=== PATIENT | male | born 1960 | race Caucasian/White ===

== ENCOUNTER 2018-02-21 18:26 | Observation (INO) | payer MEDICARE ==
[2018-02-21] MEDS ORDERED: MORPHINE SULFATE/PF 10MG/10ML VL IV STA (18:44)
[2018-02-21] MEDS ORDERED: RX INFO: IV CONTRAST WAS GIVEN 1 EACH MISC MISCELLANE PRN ×3 (18:44→21:54)
[2018-02-21] MEDS ORDERED: SODIUM CHLORIDE 0.9% 1,000 ML IV STA ×2 (18:44)
[2018-02-21] MEDS ORDERED: ONDANSETRON 4 MG/2 ML VIAL IVP STA (18:44)
[2018-02-21] MEDS ORDERED: LABETALOL 5 MG/ML VIAL MDV IVP STA (18:45)
[2018-02-21] MEDS ORDERED: ASPIRIN 81 MG PO STA (18:46)
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
[2018-02-21 19:28] LABS: Basophils # (A) 0.1 k/uL (0-0.2); Basophils % (A) 0 %; Eosinophils # (A) 0.3 k/uL (0-0.7); Eosinophils % (A) 2 %; HCT 44.1 % (39.0-53.0); HGB 14.5 gm/dL (13.0-17.5); Lymphocytes # (A) 1.9 k/uL (1.0-4.8); Lymphocytes % (A) 13 %; MCH 27.4 pg (25.0-35.0); MCHC 32.8 g/dL (31.0-37.0); MCV 83.6 fL (80.0-100.0); Mean Platelet Volume 7.8; Monocytes # (A) 0.5 k/uL (0-1.0); Monocytes % (A) 4 %; Neutrophils # (A) 12.2 k/uL (1.3-7.7); Neutrophils % (A) 81 %; Platelet Count 214 k/uL (150-450); RBC 5.28 m/uL (4.30-5.90); RDW 14.3 % (11.5-15.5)
[2018-02-21 19:37] LABS: D-Dimer 1.9 mg/L FEU (<0.60)
[2018-02-21 19:40] LABS: Amylase 57 U/L (30-110); Anion Gap 13 mmol/L; Calcium 8.9 mg/dL (8.4-10.2); Carbon Dioxide 22 mmol/L (22-30); Chloride 107 mmol/L (98-107); Glucose 125 mg/dL (74-99); Lipase 319 U/L (23-300); Sodium 142 mmol/L (137-145)
[2018-02-21 19:41] LABS: Partial Thromboplastin Time 24.2 sec (22.0-30.0); Prothrombin Time 9.9 sec (9.0-12.0)
[2018-02-21 20:01] LABS: ALT 19 U/L (21-72); AST 49 U/L (17-59); Albumin 3.7 g/dL (3.5-5.0); Alkaline Phosphatase 88 U/L (38-126); Blood Urea Nitrogen 12 mg/dL (9-20); Potassium 5.8 mmol/L (3.5-5.1); Total Protein 7.9 g/dL (6.3-8.2)
[2018-02-21 20:02] LABS: Total Bilirubin 0.8 mg/dL (0.2-1.3)
[2018-02-21 20:18] LABS: Creatine Kinase MB 0.7 ng/mL (0.0-2.4)
[2018-02-21 20:25] LABS: Troponin I 0.014 ng/mL (0.000-0.034)
--- NOTE | 2018-02-21 20:40 | CT ---
EXAMINATION TYPE: CT abdomen pelvis w con DATE OF EXAM: 02/21/2018 COMPARISON: NONE HISTORY: Stomach pains CT DLP: 4471.6 mGycm Automated exposure control for dose reduction was used. TECHNIQUE: Helical acquisition of images was performed from the lung bases through the pelvis. CONTRAST: Performed without Oral Contrast and with IV Contrast, patient injected with 100 mL of Omnipaque 300. FINDINGS: LUNG BASES: No significant abnormality is appreciated. GASTRIC LAP BAND / CATHETER: Unremarkable. LIVER/GB: No acute process. However, the caudate lobe is prominent and the liver margin is scalloped. PANCREAS: No significant abnormality is seen. SPLEEN: No significant abnormality is seen. ADRENALS: No significant abnormality is seen. KIDNEYS: No significant abnormality is seen. FREE AIR: No free air is visualized. RETROPERITONEAL ADENOPATHY: None visualized REPRODUCTIVE ORGANS: No significant abnormality is seen URINARY BLADDER: No significant abnormality is seen. PELVIC ADENOPATHY: None visualized. OSSEOUS STRUCTURES: No significant abnormality is seen. BOWEL: No significant abnormality is seen. OTHER: The opacification of the arterial structures is mild in degree. There is long-standing occlusi on of the left iliac system with prominent disease of the right iliac system, the femoral-femoral byp ass graft does not appear patent, but is not well-seen. Dedicated CTA with runoff can be obtained if necessary. IMPRESSION: NO ACUTE ABDOMINAL PELVIC PROCESS.
--- NOTE | 2018-02-21 20:52 | XR ---
EXAMINATION: XR chest 2V DATE AND TIME: 02/21/2018 8:34 PM ORDERING PROVIDER: Shirley Diaz CLINICAL INDICATION: abdominal pain TECHNIQUE: PA and lateral COMPARISON: None. DESCRIPTION: The lungs are clear. The pleural spaces are negative. The cardiac silhouette is not enlarged. The mediastinal and pleural silhouettes are unremarkable. The skeletal structures are intact without focal findings. The overlying soft tissues are prominent. IMPRESSION: NO ACUTE PROCESS.
[2018-02-21] MEDS ORDERED: ENOXAPARIN 150 MG/ML SYRINGE SQ STA (21:12)
[2018-02-21] MEDS ORDERED: SODIUM CHLORIDE 0.9% 1,000 ML IV ONE (21:41)
[2018-02-21] MEDS ORDERED: ONDANSETRON 4 MG/2 ML VIAL IVP PRN (21:51)
[2018-02-21] MEDS ORDERED: NALOXONE 0.4 MG/ML 1 ML VIAL IV PRN (21:51)
[2018-02-21] MEDS ORDERED: ACETAMINOPHEN TAB 325 MG TAB PO PRN (21:51)
[2018-02-21] MEDS ORDERED: IBUPROFEN 400 MG TAB PO PRN (21:51)
[2018-02-21] MEDS ORDERED: Acetaminophen-Codeine 300-30mg TAB PO PRN (21:51)
[2018-02-21] MEDS ORDERED: DOCUSATE 100 MG CAP PO PRN (21:51)
[2018-02-21] MEDS ORDERED: IPRATROPIUM-ALBUTEROL 3 ML NEB INHALATION SCH (22:00)
[2018-02-21 23:27] VITALS: BMI 46.3
[2018-02-21] MEDS: SODIUM CHLORIDE 0.9% 1,000 ML IV SCH (23:30)
[2018-02-21] MEDS ORDERED: IPRATROPIUM-ALBUTEROL 3 ML NEB INHALATION PRN (23:37)
[2018-02-21] MEDS: MORPHINE SULFATE/PF 10MG/10ML VL IV PRN (23:40)
[2018-02-21 23:44] VITALS: RESP 22
[2018-02-22 02:00] LABS: Creatine Kinase 63 U/L (55-170)
[2018-02-22 02:12] LABS: Troponin I <0.012 ng/mL (0.000-0.034)
[2018-02-22] MEDS: MORPHINE SULFATE/PF 10MG/10ML VL IV PRN (04:37)
[2018-02-22 04:39] LABS: Appearance,Urine Clear (Clear); Bilirubin,Urine Negative (Negative); Blood,Urine Negative (Negative); Color,Urine Yellow; Glucose,Urine (UA) Negative (Negative); Ketones,Urine Negative (Negative); Leukocyte Esterase,Urine Negative (Negative); Nitrite,Urine Negative (Negative); PH, Urine 6.5 (5.0-8.0); Protein,Urine Trace (Negative); Urobilinogen,Urine <2.0 mg/dL (<2.0)
[2018-02-22 05:01] LABS: Specific Gravity,Urine 1.047 (1.001-1.035)
[2018-02-22] MEDS: IPRATROPIUM-ALBUTEROL 3 ML NEB INHALATION SCH ×3 (07:52→16:38)
[2018-02-22] MEDS: SODIUM CHLORIDE 0.9% 1,000 ML IV SCH ×2 (07:56→14:53)
[2018-02-22 08:10] LABS: Basophils % (A) 0 %; Eosinophils # (A) 0.2 k/uL (0-0.7); Eosinophils % (A) 2 %; HCT 42.2 % (39.0-53.0); HGB 13.3 gm/dL (13.0-17.5); Lymphocytes # (A) 2.2 k/uL (1.0-4.8); Lymphocytes % (A) 21 %; MCHC 31.6 g/dL (31.0-37.0); MCV 85.4 fL (80.0-100.0); Mean Platelet Volume 7.7; Monocytes # (A) 0.4 k/uL (0-1.0); Monocytes % (A) 4 %; Neutrophils # (A) 7.9 k/uL (1.3-7.7); Neutrophils % (A) 73 %; Platelet Count 195 k/uL (150-450); RBC 4.94 m/uL (4.30-5.90); RDW 14.4 % (11.5-15.5); WBC 10.8 k/uL (3.8-10.6)
[2018-02-22 08:21] LABS: ALT 26 U/L (21-72); AST 35 U/L (17-59); Alkaline Phosphatase 84 U/L (38-126); Anion Gap 10 mmol/L; Blood Urea Nitrogen 11 mg/dL (9-20); Calcium 8.1 mg/dL (8.4-10.2); Carbon Dioxide 26 mmol/L (22-30); Chloride 107 mmol/L (98-107); Glucose 111 mg/dL (74-99); Potassium 3.9 mmol/L (3.5-5.1); Sodium 143 mmol/L (137-145); Total Bilirubin 0.5 mg/dL (0.2-1.3); Total Protein 6.2 g/dL (6.3-8.2)
[2018-02-22 08:41] LABS: Creatine Kinase MB 1.5 ng/mL (0.0-2.4); Troponin I 0.014 ng/mL (0.000-0.034)
[2018-02-22] MEDS ORDERED: PANTOPRAZOLE 40 MG/10 ML VIAL IV SCH (09:00)
[2018-02-22 14:39] VITALS: BP 110/66; PULSE 81; TEMP 98
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
--- NOTE | 2018-02-22 16:03 | NM ---
EXAMINATION TYPE: NM pul vent and perfuse DATE OF EXAM: 02/22/2018 COMPARISON: NONE HISTORY: Left flank pain, elevated d-dimer TECHNIQUE: Utilizing inhalation of 70.0 mCi Tc 99m DTPA aerosol and intravenous injection of 5.06 mC i of Tc 99m MAA, ventilation and perfusion images are acquired post injection in multiple projections . FINDINGS: Near normal radiotracer distribution is noted in the lungs, small subsegmental focus of decreased upt quinten may be present along the lateral margin of the posterior right chest on ventilation and perfusion imaging, better uptake on perfusion than on ventilation. There is no evidence of mismatched defects. IMPRESSION: Low probability for pulmonary embolus.
[2018-02-22] MEDS ORDERED: amLODIPine 5 MG TAB PO SCH (21:00)
[2018-02-23] MEDS ORDERED: PANTOPRAZOLE 40 MG TABLET PO SCH (07:30)
== END 2018-02-22 17:11 | disposition home or self-care (01) ==
LOC: EC 18:26 → 5MS5E 21:30
PROVIDERS: ADMIT Internal Medicine; ATTEND Internal Medicine
DX: R10.32 Left lower quadrant pain (principal); R79.89 Other specified abnormal findings of blood chemistry; E86.0 Dehydration; I16.0 Hypertensive urgency; I10 Essential (primary) hypertension; K85.90 Acute pancreatitis without necrosis or infection, unspecified; E66.9 Obesity, unspecified; Z68.42 Body mass index [BMI] 45.0-49.9, adult; Z89.612 Acquired absence of left leg above knee; Z79.899 Other long term (current) drug therapy; Z91.048 Other nonmedicinal substance allergy status; Z98.84 Bariatric surgery status; Z95.828 Presence of other vascular implants and grafts; Z90.49 Acquired absence of other specified parts of digestive tract; Z99.3 Dependence on wheelchair; Z87.891 Personal history of nicotine dependence
CPT/HCPCS: 96376 ×2; 96375 ×4; 96361 ×5; 96372 ×2; 96374 ×2; 99285 ×2; 36415; 93005; 97162; 85379; 83880; 80053 ×2; 82150; 82550 ×2; 82553 ×2; 83605; 83690; 84132; 84484 ×2; 85025 ×2; 85610; 85730; 81003; 87040; 71046; 74177; 78582; G0378 ×2; A9540; A9567; J2405; J1650; C9113; Q9967; J2270 ×2

== ENCOUNTER → 2018-03-15 | Outpatient (CLI) | payer MEDICARE ==
[2018-03-15 14:36] VITALS: BP 173/90; PULSE 74; RESP 15; TEMP 97.9; BMI 46.3
[2018-03-15 15:50] LABS: HCT 47.3 % (39.0-53.0); HGB 15.3 gm/dL (13.0-17.5); MCH 27.3 pg (25.0-35.0); MCHC 32.3 g/dL (31.0-37.0); MCV 84.6 fL (80.0-100.0); Mean Platelet Volume 8.1; Platelet Count 202 k/uL (150-450); RBC 5.59 m/uL (4.30-5.90); RDW 14.5 % (11.5-15.5); WBC 15.5 k/uL (3.8-10.6)
[2018-03-15 16:02] LABS: ALT 24 U/L (21-72); AST 26 U/L (17-59); Albumin 3.8 g/dL (3.5-5.0); Alkaline Phosphatase 93 U/L (38-126); Anion Gap 13 mmol/L; Blood Urea Nitrogen 11 mg/dL (9-20); Calcium 9.6 mg/dL (8.4-10.2); Carbon Dioxide 29 mmol/L (22-30); Chloride 104 mmol/L (98-107); Glucose 94 mg/dL (74-99); Potassium 4.7 mmol/L (3.5-5.1); Sodium 146 mmol/L (137-145); Total Bilirubin 0.4 mg/dL (0.2-1.3); Total Protein 7.7 g/dL (6.3-8.2)
--- NOTE | 2018-03-15 17:01 | P.HPBAR ---
Bariatric H&P - History & Physicial H&P Date: 03/15/18 History & Physicial: Visit/CC: sleeve consult Patient initial contact: Initial weight: 142.428 kg Initial weight in pounds: 314.00 Height: 5 ft 9 in Initial BMI: 46.3 Last weight: Current weight: 142.428 kg Current weight in pounds: 314.00 Current BMI: 46.3 [place] body weight (based on NIH guidelines): 72.575 kg Excess body weight loss: 0.0% The patient is a 57 year-old M who presents for Bariatric Assessment. Patient presents today for lab band follow. The patient is requesting conversion sleeve gastrectomy. Patient has had many years of GERD related to his LAP- BAND. He is unable to tolerate a significant fill of his band due to significant dysphagia and GERD. He had a recent EGD which shows evidence of esophagitis and a possibly enlarged gastric pouch. Past Medical History Past Medical History: GERD/Reflux, Hypertension History of Any Multi-Drug Resistant Organisms: None Reported Past Surgical History: Appendectomy, Bariatric Surgery, Cholecystectomy, Orthopedic Surgery, Tonsillectomy Additional Past Surgical History / Comment(s): left AKA, lap band- 2003,Right- Left fem-pop bypass surgery, Left above knee amputation, Past Anesthesia/Blood Transfusion Reactions: No Reported Reaction Additional Past Anesthesia/Blood Transfusion Reaction / Comm: No transfusion to date Past Psychological History: No Psychological Hx Reported Smoking Status: Former smoker Past Alcohol Use History: None Reported Additional Past Alcohol Use History / Comment(s): quit smoking August 2017 Past Drug Use History: None Reported Surgical - Exam Vital Signs Temp Pulse Resp BP 97.9 F 74 15 173/90 03/15/18 14:28 03/15/18 14:28 03/15/18 14:28 03/15/18 14:28 - General well developed, no distress - Eyes PERRL - ENT normal pinna - Neck no masses - Respiratory normal expansion - Cardiovascular Rhythm: regular - Abdomen Abdomen: soft, non tender Results - Labs 03/15/18 15:14 03/15/18 15:14 Abnormal Lab Results - Last 24 Hours (Table) 03/15/18 03/15/18 Range/Units 15:14 15:14 WBC 15.5 H (3.8-10.6) k/uL Sodium 146 H (137-145) mmol/L Diabetes panel 03/15/18 Range/Units 15:14 Sodium 146 H (137-145) mmol/L Potassium 4.7 (3.5-5.1) mmol/L Chloride 104 (98-107) mmol/L Carbon Dioxide 29 (22-30) mmol/L BUN 11 (9-20) mg/dL Creatinine 0.80 (0.66-1.25) mg/dL Glucose 94 (74-99) mg/dL Calcium 9.6 (8.4-10.2) mg/dL AST 26 (17-59) U/L ALT 24 (21-72) U/L Alkaline Phosphatase 93 (38-126) U/L Total Protein 7.7 (6.3-8.2) g/dL Albumin 3.8 (3.5-5.0) g/dL Thyroid panel 03/15/18 Range/Units 15:14 TSH 1.180 (0.465-4.680) mIU/L Calcium panel 03/15/18 Range/Units 15:14 Calcium 9.6 (8.4-10.2) mg/dL Albumin 3.8 (3.5-5.0) g/dL Pituitary panel 03/15/18 Range/Units 15:14 Sodium 146 H (137-145) mmol/L Potassium 4.7 (3.5-5.1) mmol/L Chloride 104 (98-107) mmol/L Carbon Dioxide 29 (22-30) mmol/L BUN 11 (9-20) mg/dL Creatinine 0.80 (0.66-1.25) mg/dL Glucose 94 (74-99) mg/dL Calcium 9.6 (8.4-10.2) mg/dL TSH 1.180 (0.465-4.680) mIU/L Adrenal panel 03/15/18 Range/Units 15:14 Sodium 146 H (137-145) mmol/L Potassium 4.7 (3.5-5.1) mmol/L Chloride 104 (98-107) mmol/L Carbon Dioxide 29 (22-30) mmol/L BUN 11 (9-20) mg/dL Creatinine 0.80 (0.66-1.25) mg/dL Glucose 94 (74-99) mg/dL Calcium 9.6 (8.4-10.2) mg/dL Total Bilirubin 0.4 (0.2-1.3) mg/dL AST 26 (17-59) U/L ALT 24 (21-72) U/L Alkaline Phosphatase 93 (38-126) U/L Total Protein 7.7 (6.3-8.2) g/dL Albumin 3.8 (3.5-5.0) g/dL Bariatric Assessment & Plan Plan: Morbid obesity BMI 47. Patient has long-standing problems with dysphagia and GERD related to his band. We'll attempt authorizing for removal of LAP-BAND and conversion sleeve gastrectomy. Bariatric Checklist Checklist: Plan: Checklist: EGD: 1. Hiatal hernia: 2. H. Pylori: HgbA1c: Vitamin D: Smoking: Former smoker Primary care physician referral: Dr. Kadeem Khanna ([place]) Psychiatry clearance: Cardiology clearance: Sleep study: Diet journal: VTE risk score: VTE risk level: Rehab needs at discharge:
[2018-03-16 02:00] LABS: Iron Saturation 13.2 (15.00-50.00)
[2018-03-16 03:37] LABS: Hemoglobin A1C 6.2 % (4.0-6.0)
== END | disposition home or self-care (01) ==
LOC: BARWHC3 13:56
PROVIDERS: ATTEND Surgery
DX: Z09 Encounter for follow-up examination after completed treatment for conditions other than malignant neoplasm (principal); K21.9 Gastro-esophageal reflux disease without esophagitis; R13.10 Dysphagia, unspecified; I10 Essential (primary) hypertension; D50.8 Other iron deficiency anemias; E55.9 Vitamin D deficiency, unspecified; E44.0 Moderate protein-calorie malnutrition; E89.1 Postprocedural hypoinsulinemia; Z90.49 Acquired absence of other specified parts of digestive tract; Z98.84 Bariatric surgery status; Z90.89 Acquired absence of other organs; Z98.890 Other specified postprocedural states; Z89.612 Acquired absence of left leg above knee; Z95.820 Peripheral vascular angioplasty status with implants and grafts; Z87.891 Personal history of nicotine dependence; Z68.42 Body mass index [BMI] 45.0-49.9, adult
CPT/HCPCS: 36415; 80053; 82306; 83036; 83540; 83550; 84443; 85027; 93005; 99211

== ENCOUNTER → 2018-06-28 | Outpatient (CLI) | payer MEDICARE ==
[2018-06-28 14:58] VITALS: BP 170/77; PULSE 83; RESP 16; TEMP 98.1; BMI 46.3
--- NOTE | 2018-06-28 15:11 | P.HPBAR ---
Bariatric H&P - History & Physicial H&P Date: 06/28/18 History & Physicial: Visit/CC: band to sleeve surgery aug ? Patient initial contact: Initial weight: 142.428 kg Initial weight in pounds: 314.00 Height: 5 ft 9 in Initial BMI: 46.3 Last weight: Current weight: 142.428 kg Current weight in pounds: 314.00 Current BMI: 46.3 [place] body weight (based on NIH guidelines): 72.575 kg Excess body weight loss: 0.0% The patient is a 57 year-old M who presents for Bariatric Assessment. Patient presents today for preoperative surgical consultation. He has finished mostly requirements of his preoperative sleeve. The patient will attempting to get authorized for sleeve gastrectomy. He'll be scheduled for direct last. His BMI is 47. Past Medical History Past Medical History: GERD/Reflux, Hypertension History of Any Multi-Drug Resistant Organisms: None Reported Past Surgical History: Appendectomy, Bariatric Surgery, Cholecystectomy, Orthopedic Surgery, Tonsillectomy Additional Past Surgical History / Comment(s): left AKA, lap band- 2003,Right- Left fem-pop bypass surgery, Left above knee amputation, Past Anesthesia/Blood Transfusion Reactions: No Reported Reaction Additional Past Anesthesia/Blood Transfusion Reaction / Comm: No transfusion to date Past Psychological History: No Psychological Hx Reported Smoking Status: Former smoker Past Alcohol Use History: None Reported Additional Past Alcohol Use History / Comment(s): quit smoking August 2017 Past Drug Use History: None Reported Surgical - Exam Vital Signs Temp Pulse Resp BP 98.1 F 83 16 170/77 06/28/18 14:55 06/28/18 14:55 06/28/18 14:55 06/28/18 14:55 - General no distress - Eyes PERRL - Neck no masses - Respiratory normal expansion - Abdomen Abdomen: soft, non tender Bariatric Assessment & Plan Plan: The patient has morbid obesity BMI 47. We will attempt authorized for sleeve gastrectomy and removal of LAP-BAND. Bariatric Checklist Checklist: Plan: Checklist: EGD: 1. Hiatal hernia: 2. H. Pylori: HgbA1c: Vitamin D: Smoking: Former smoker Primary care physician referral: Dr. Kadeem Khanna ([place]) Psychiatry clearance: Cardiology clearance: Sleep study: Diet journal: VTE risk score: VTE risk level: Rehab needs at discharge:
== END | disposition home or self-care (01) ==
LOC: BARWHC3 14:17
PROVIDERS: ATTEND Surgery
DX: Z01.818 Encounter for other preprocedural examination (principal); E66.01 Morbid (severe) obesity due to excess calories; Z68.42 Body mass index [BMI] 45.0-49.9, adult; Z98.84 Bariatric surgery status; Z90.49 Acquired absence of other specified parts of digestive tract; Z90.89 Acquired absence of other organs; Z98.890 Other specified postprocedural states; Z89.612 Acquired absence of left leg above knee; Z87.891 Personal history of nicotine dependence
CPT/HCPCS: 99211

== ENCOUNTER → 2018-08-30 | Outpatient (CLI) | payer MEDICARE ==
[2018-08-30 14:18] LABS: Basophils % (A) 0 %; Eosinophils # (A) 0.1 k/uL (0-0.7); Eosinophils % (A) 1 %; HCT 48.3 % (39.0-53.0); HGB 15.6 gm/dL (13.0-17.5); Lymphocytes # (A) 1.5 k/uL (1.0-4.8); Lymphocytes % (A) 11 %; MCH 28.2 pg (25.0-35.0); MCHC 32.2 g/dL (31.0-37.0); MCV 87.6 fL (80.0-100.0); Mean Platelet Volume 7.1; Monocytes # (A) 0.4 k/uL (0-1.0); Monocytes % (A) 3 %; Neutrophils # (A) 11.8 k/uL (1.3-7.7); Neutrophils % (A) 85 %; Platelet Count 198 k/uL (150-450); RBC 5.52 m/uL (4.30-5.90); RDW 13.8 % (11.5-15.5)
[2018-08-30 14:26] LABS: ALT 32 U/L (21-72); AST 31 U/L (17-59); Albumin 3.9 g/dL (3.5-5.0); Alkaline Phosphatase 80 U/L (38-126); Anion Gap 10 mmol/L; Blood Urea Nitrogen 13 mg/dL (9-20); Calcium 9.5 mg/dL (8.4-10.2); Carbon Dioxide 28 mmol/L (22-30); Chloride 105 mmol/L (98-107); Glucose 175 mg/dL (74-99); Potassium 4.5 mmol/L (3.5-5.1); Sodium 143 mmol/L (137-145); Total Bilirubin 0.7 mg/dL (0.2-1.3); Total Protein 7.7 g/dL (6.3-8.2)
== END ==
LOC: LABPAT 13:25
PROVIDERS: ATTEND Surgery
DX: Z01.812 Encounter for preprocedural laboratory examination (principal)
CPT/HCPCS: 36415; 80053; 85025

== ENCOUNTER → 2018-08-30 | Outpatient (CLI) | payer MEDICARE ==
[2018-08-30 13:39] VITALS: BP 157/78; PULSE 76; TEMP 98.2; BMI 49.8
--- NOTE | 2018-08-30 15:31 | P.HPBAR ---
Bariatric H&P - History & Physicial H&P Date: 08/30/18 History & Physicial: Visit/CC: preoperative visit Patient initial contact: Initial weight: 142.428 kg Initial weight in pounds: 314.00 Height: 5 ft 9 in Initial BMI: 46.3 Last weight: Current weight: 153.314 kg Current weight in pounds: 338.00 Current BMI: 49.8 [place] body weight (based on NIH guidelines): 72.575 kg Excess body weight loss: The patient is a 57 year-old M who presents for Bariatric Assessment. Patient presents today for bariatric presurgical consultation. He has been approved for sleeve gastrectomy. Patient is morbidly obese BMI of 50 Past Medical History Past Medical History: GERD/Reflux, Hypertension History of Any Multi-Drug Resistant Organisms: None Reported Past Surgical History: Appendectomy, Bariatric Surgery, Cholecystectomy, Orthopedic Surgery, Tonsillectomy Additional Past Surgical History / Comment(s): left AKA, lap band- 2004,Right- Left fem-pop bypass surgery, Left above knee amputation, Past Anesthesia/Blood Transfusion Reactions: No Reported Reaction Additional Past Anesthesia/Blood Transfusion Reaction / Comm: No transfusion to date Past Psychological History: No Psychological Hx Reported Smoking Status: Former smoker Past Alcohol Use History: None Reported Additional Past Alcohol Use History / Comment(s): quit smoking August 2017 Past Drug Use History: None Reported Surgical - Exam Vital Signs Temp Pulse BP 98.2 F 76 157/78 08/30/18 13:33 08/30/18 13:33 08/30/18 13:33 - General well developed, well nourished, no distress - Eyes PERRL - Abdomen Abdomen: soft, non tender Bariatric Assessment & Plan Plan: Morbid obesity with severe comorbidities. Patient has a good understanding of the sleeve gastrectomy. His of the risks of surgery including bleeding, perforation scarring. He is also a risk of recurrent GERD and dysphagia. Bariatric Checklist Checklist: Plan: Checklist: EGD: 1. Hiatal hernia: 2. H. Pylori: HgbA1c: Vitamin D: Smoking: Former smoker Primary care physician referral: Dr. Kadeem Khanna ([place]) Psychiatry clearance: Cardiology clearance: Sleep study: Diet journal: VTE risk score: VTE risk level: Rehab needs at discharge:
== END | disposition home or self-care (01) ==
LOC: BARWHC3 12:59
PROVIDERS: ATTEND Surgery
DX: Z01.818 Encounter for other preprocedural examination (principal); E66.01 Morbid (severe) obesity due to excess calories; Z68.43 Body mass index [BMI] 50.0-59.9, adult; Z98.84 Bariatric surgery status; Z90.49 Acquired absence of other specified parts of digestive tract; Z90.89 Acquired absence of other organs; Z98.890 Other specified postprocedural states; Z89.612 Acquired absence of left leg above knee; Z87.891 Personal history of nicotine dependence
CPT/HCPCS: 99211

== ENCOUNTER 2018-09-13 06:14 | Inpatient (IN) | payer MEDICARE ==
[2018-09-06 10:54] VITALS: BMI 48.9
[~2018-09-13 06:14] MED LIST: DEXAMETHASONE SOD PHOSPHATE 10 MG/ML 1 ML VIAL IV ONE; ENOXAPARIN 40 MG/0.4 ML SYRINGE SQ ONE; LACTATED RINGERS 1,000 ML IV SCH; LIDOCAINE 1% 20 ML VIAL (10MG/ML) FOR IV START INTRADERMA PRN; ONDANSETRON 4 MG/2 ML VIAL IVP ONE; SCOPOLAMINE 1.5MG/72HR PATCH TRANSDERM ONE
--- NOTE | 2018-09-13 07:54 | P.GSHP ---
History of Present Illness H&P Date: 09/13/18 Chief Complaint: Morbid obesity, dysphagia This 57-year-old male who presents today for removal of LAP-BAND and conversion sleeve gastrectomy. Patient morbidly obese. His BMI is 49. Patient has had a previous history of LAP-BAND surgery. He has dysphagia when his band is tight. He presents today for removal of his LAP-BAND secondary dysphagia. Past Medical History Past Medical History: GERD/Reflux, Hypertension, Osteoarthritis (OA) History of Any Multi-Drug Resistant Organisms: None Reported Past Surgical History: Appendectomy, Bariatric Surgery, Cholecystectomy, Orthopedic Surgery, Tonsillectomy Additional Past Surgical History / Comment(s): left below the knee, lap band- 2003,Right- Left fem-pop bypass surgery, Left above knee amputation, Past Anesthesia/Blood Transfusion Reactions: No Reported Reaction Additional Past Anesthesia/Blood Transfusion Reaction / Comment(s): No transfusion to date Smoking Status: Former smoker - Past Family History Mother Family Medical History: No Reported History Medications and Allergies Home Medications Medication Instructions Recorded Confirmed Type Hydrochlorothiazide [Hydrodiuril] 25 mg PO DAILY 02/22/18 09/13/18 History Metoprolol Succinate [Toprol Xl] 50 mg PO DAILY 08/16/18 09/13/18 History Sertraline [Zoloft] 50 mg PO DAILY 08/16/18 09/13/18 History amLODIPine [Norvasc] 10 mg PO DAILY 08/16/18 09/13/18 History oxyCODONE-APAP 7.5-325MG [Percocet 1 tab PO TID PRN 08/16/18 09/13/18 History 7.5-325 mg] Allergies Allergy/AdvReac Type Severity Reaction Status Date / Time steri strips AdvReac Rash/Hives Uncoded 09/13/18 06:47 Surgical - Exam Vital Signs Temp Pulse Resp BP Pulse Ox 97.4 F L 57 L 16 151/66 95 09/13/18 06:36 09/13/18 06:36 09/13/18 06:36 09/13/18 06:36 09/13/18 06:36 - General BMI 49 well developed, well nourished, no distress - Eyes PERRL - ENT normal pinna - Neck no masses - Respiratory normal expansion - Cardiovascular Rhythm: regular - Abdomen Abdomen: soft, non tender - Musculoskeletal Left BKA Assessment and Plan Assessment: Morbid obesity. We'll perform removal LAP-BAND and conversion to sleeve gastrectomy.
[2018-09-13] MEDS ORDERED: PROPOFOL 10 MG/ML 20 ML VIAL IV ONE (07:59)
[2018-09-13] MEDS ORDERED: MIDAZOLAM 2 MG/2 ML VIAL ONE (07:59)
[2018-09-13] MEDS ORDERED: LIDOCAINE 1% INJ 10MG/ML (20 ML MDV) ONE (07:59)
[2018-09-13] MEDS ORDERED: ROCURONIUM BROMIDE 10 MG/ML 10 ML VIAL IV ONE (07:59)
[2018-09-13] MEDS ORDERED: GLYCOPYRROLATE 0.2 MG/ML 2 ML VIAL ONE (07:59)
[2018-09-13] MEDS ORDERED: NEOSTIGMINE 1 MG/ML 10 ML VIAL ONE (07:59)
[2018-09-13] MEDS ORDERED: SUCCINYLCHOLINE CHLORIDE VIAL 200 MG/10 ML VIAL IV ONE (07:59)
[2018-09-13] MEDS ORDERED: fentaNYL (PF) 50 MCG/ML 2 ML AMP ONE (07:59)
[2018-09-13] MEDS ORDERED: LABETALOL 5 MG/ML VIAL MDV ONE (07:59)
[2018-09-13] MEDS ORDERED: BUPIVACAIN-EPI 0.25%-1:200,000 30 ML VIAL SQ ONE (08:40)
[2018-09-13] MEDS ORDERED: LACTATED RINGERS 1,000 ML IV ONE (09:47)
[2018-09-13] MEDS ORDERED: NALOXONE 0.4 MG/ML 1 ML VIAL IV PRN (10:07)
[2018-09-13] MEDS ORDERED: ONDANSETRON 4 MG/2 ML VIAL IVP PRN (10:07)
[2018-09-13] MEDS ORDERED: diphenhydrAMINE 50 MG/ML 1 ML VIAL IVP PRN (10:07)
[2018-09-13] MEDS ORDERED: SIMETHICONE 40 MG/0.6 ML DROPS 2,000 MG/30 ML BOTTLE PO PRN (10:07)
--- NOTE | 2018-09-13 10:22 | P.OP ---
Date of Procedure: 09/13/18 Preoperative Diagnosis: Dysphagia Morbid obesity BMI 49 Postoperative Diagnosis: Dysphagia Morbid obesity, BMI 49 Procedure(s) Performed: Laparoscopic lysis of adhesions Laparoscopic removal LAP-BAND Laparoscopic sleeve gastrectomy Anesthesia: MARISSA Surgeon: Nabor Preston Estimated Blood Loss (ml): 10 Pathology: other (Stomach) Condition: stable Disposition: PACU Description of Procedure: TThe patient was placed on the operating room table in the supine position. She received general anesthesia and then was placed in dorsal lithotomy position. Her abdomen was prepped and draped in sterile fashion. The skin incision sites were anesthetized 1% local Xylocaine. And then the skin was incised with an 11 blade in the left lateral position. Using a blade less trocar under direct visualization the peritoneal cavity was entered. The abdomen was insufflated and then a 5 mm laparoscope was placed into the peritoneal cavity. A 5 mm trocar was placed in the right epigastric, and right lateral position. A 15 mm trocar was placed in the supra-umbilical position and another 5 mm trocar was placed in the left lateral position. The left lateral lobe of the liver was retracted. The LAP-BAND was visualized. There were adhesions to the LAP-BAND. Approximately 15 minutes of operative time used to lyse adhesions. The LAP- BAND anterior gastric wall plication and was taken down with sharp dissection. Care was taken to identify and preserve the gastric wall. The LAP-BAND was then cut and withdrawn from around stomach. There is no injury seen to the stomach or esophagus. The stomach was visualized. The greater curvature of the stomach was then dissected using the Harmonic scissors. The dissection occurred approximately 5 cm from the pylorus to the level of the left sonia. There was no hiatal hernia seen. At this point a 40-Kinyarwanda bougie dilator was placed the oropharynx and passed into the esophagus and into the stomach by the LUG [employer]ER [employer] WIRE P[employer]ER. The sleeve gastrectomy was performed by using the powered echelon stapler with a seam guard buttress material. Sequential firings of the stapler were performed. The gastric remnant was then brought out through the 15 mm trocar site. The dilator was withdrawn. And a orogastric tube was replaced into the stomach. The stomach was insufflated with 200 mL of methylene blue normal saline. There was no evidence of extravasation. The abdomen was irrigated there is no bleeding seen. The Jozef-Joe device was used to close the 15 mm trocar with 0 Vicryl. Skin was closed with interrupted 3-0 Monocryl sutures once the trochars withdrawn. Dermabond dressing was applied. Patient was sent to recovery in stable condition.
[2018-09-13] MEDS: HYDROmorphone 0.5 MG/0.5 ML SYRINGE IVP PRN ×4 (10:34→11:20)
[2018-09-13] MEDS ORDERED: ALBUTEROL NEBULIZED 2.5 MG/3 ML INHALATION ONE (10:53)
[2018-09-13] MEDS ORDERED: MEPERIDINE 50 MG/ML SYRINGE IVP ONE ×2 (12:13→14:43)
[2018-09-13] MEDS ORDERED: HYDROmorphone 1 MG/ML 1 ML SYRINGE IVP ONE ×3 (14:51→17:21)
[2018-09-13] MEDS: ALBUTEROL NEBULIZED 2.5 MG/3 ML INHALATION SCH ×2 (17:38→20:27)
--- NOTE | 2018-09-13 18:07 | P.CONS ---
History of Present Illness - Reason for Consult Recommendations regarding antihypertensive medications - History of Present Illness 7-year-old pleasant gentleman morbidly obese left knee amputation came in for elective sleeve gastrectomy lap band removal and the additional lysis. Patient successfully underwent surgery denied any pain presently except for some soreness in the surgical site areas. Patient is presently on Unasyn. Does have history of hypertension blood pressure is bit elevated. Denied any fever chills dysuria lightheadedness cough. Does have some nausea Review of Systems REVIEW OF SYSTEMS: CONSTITUTIONAL: No fever, no malaise, no fatigue. HEENT: No recent visual problems or hearing problems. Denied any sore throat. CARDIOVASCULAR: No chest pain, orthopnea, PND, no palpitations, no syncope. PULMONARY: No shortness of breath, no cough, no hemoptysis. GASTROINTESTINAL: No diarrhea, no vomiting, no abdominal pain. Normoactive bowel sounds. NEUROLOGICAL: No headaches, no weakness, no numbness. HEMATOLOGICAL: Denies any bleeding or petechiae. GENITOURINARY: Denies any burning micturition, frequency, or urgency. MUSCULOSKELETAL/RHEUMATOLOGICAL: Denies any joint pain, swelling, or any muscle pain. ENDOCRINE: Denies any polyuria or polydipsia. The rest of the 14-point review of systems is negative. Past Medical History Past Medical History: GERD/Reflux, Hypertension, Osteoarthritis (OA) History of Any Multi-Drug Resistant Organisms: None Reported Past Surgical History: Appendectomy, Bariatric Surgery, Cholecystectomy, Orthopedic Surgery, Tonsillectomy Additional Past Surgical History / Comment(s): left below the knee, lap band- 2004,Right- Left fem-pop bypass surgery, Left above knee amputation, Past Anesthesia/Blood Transfusion Reactions: No Reported Reaction Additional Past Anesthesia/Blood Transfusion Reaction / Comm: No transfusion to date Smoking Status: Former smoker - Past Family History Mother Family Medical History: No Reported History Medications and Allergies Home Medications Medication Instructions Recorded Confirmed Type Hydrochlorothiazide [Hydrodiuril] 25 mg PO DAILY 02/22/18 09/13/18 History Metoprolol Succinate [Toprol Xl] 50 mg PO DAILY 08/16/18 09/13/18 History Sertraline [Zoloft] 50 mg PO DAILY 08/16/18 09/13/18 History amLODIPine [Norvasc] 10 mg PO DAILY 08/16/18 09/13/18 History oxyCODONE-APAP 7.5-325MG [Percocet 1 tab PO TID PRN 08/16/18 09/13/18 History 7.5-325 mg] Allergies Allergy/AdvReac Type Severity Reaction Status Date / Time steri strips AdvReac Rash/Hives Uncoded 09/13/18 06:47 Physical Exam Vitals: Vital Signs Temp Pulse Pulse Resp BP Pulse Ox 09/13/18 17:25 98.1 F 76 17 161/63 94 L 09/13/18 16:49 65 16 150/70 98 09/13/18 16:23 61 16 148/70 97 09/13/18 15:54 62 16 148/67 95 09/13/18 15:35 58 L 16 150/74 94 L 09/13/18 15:15 63 14 143/68 92 L 09/13/18 14:45 72 16 138/66 95 09/13/18 14:15 68 18 143/62 95 09/13/18 13:40 63 16 153/73 97 09/13/18 13:10 63 141/63 99 09/13/18 12:40 64 18 149/65 100 09/13/18 12:18 67 18 146/70 100 09/13/18 12:14 64 18 171/77 99 09/13/18 11:50 66 20 163/70 96 09/13/18 11:35 66 20 149/68 96 09/13/18 11:20 64 20 148/68 96 09/13/18 11:05 63 20 177/79 96 09/13/18 10:50 61 18 152/71 97 09/13/18 10:35 62 16 150/72 98 09/13/18 10:21 97.2 F L 65 16 136/84 97 09/13/18 06:36 97.4 F L 57 L 16 151/66 95 Intake and Output 09/13/18 09/13/18 09/13/18 06:59 14:59 22:59 Intake Total 1150 700 Output Total 25 Balance 1125 700 Intake: IV 1150 700 Output: Estimated Blood Loss 25 PHYSICAL EXAMINATION: GENERAL: The patient is alert and oriented x3, not in any acute distress. Morbidly obese HEENT: Pupils are round and equally reacting to light. EOMI. No scleral icterus. No conjunctival pallor. Normocephalic, atraumatic. No pharyngeal erythema. No thyromegaly. CARDIOVASCULAR: S1 and S2 present. No murmurs, rubs, or gallops. PULMONARY: Chest is clear to auscultation, no wheezing or crackles. ABDOMEN: Soft, nontender, nondistended, normoactive bowel sounds. No palpable organomegaly. MUSCULOSKELETAL: No joint swelling or deformity. EXTREMITIES: No cyanosis, clubbing, or pedal edema. The below-knee amputation NEUROLOGICAL: Gross neurological examination did not reveal any focal deficits. SKIN: No rashes. Assessment and Plan Plan: -Laparoscopic sleeve gastrectomy postoperative day 0 pain management DVT prophylaxis per primary service patient's nausea is expected. -Hypertension patient blood pressure is bit elevated patient will be resumed on his home medications not receiving any IV fluids because of that reason I'll resume his hydrochlorothiazide and amlodipine -Osteoarthritis -Left below-knee amputation -Morbid obesity for which patient underwent laparoscopic sleeve gastrectomy -Anxiety disorder
[2018-09-13] MEDS: 0.9% NACL WITH KCL 20 MEQ/L 1,000 ML IV SCH (18:10)
[2018-09-13] MEDS: AMPICILLIN-SULBACTAM 3 GM in SODIUM CHLORIDE 0.9% 100 ML IVPB SCH (18:10)
[2018-09-13] MEDS: HYDROmorphone 1 MG/ML 1 ML SYRINGE IVP PRN ×2 (18:14→21:42)
[2018-09-13] MEDS ORDERED: amLODIPine 10 MG TAB PO SCH (21:00)
[2018-09-13] MEDS ORDERED: METOPROLOL SUCCINATE (ER) 50 MG TAB.ER.24H PO SCH (21:00)
[2018-09-13] MEDS ORDERED: SERTRALINE 50 MG TAB PO SCH (21:00)
[2018-09-13] MEDS: HYOSCYAMINE ORAL DROPS 1.875 MG/15 ML BOTTLE PO PRN (21:43)
[2018-09-14 00:12] VITALS: RESP 16; TEMP 97.8
[2018-09-14] MEDS: HYDROmorphone 1 MG/ML 1 ML SYRINGE IVP PRN ×4 (01:03→11:13)
[2018-09-14] MEDS: AMPICILLIN-SULBACTAM 3 GM in SODIUM CHLORIDE 0.9% 100 ML IVPB SCH (01:04)
[2018-09-14] MEDS: 0.9% NACL WITH KCL 20 MEQ/L 1,000 ML IV SCH ×2 (01:08→10:25)
[2018-09-14] MEDS: HYOSCYAMINE ORAL DROPS 1.875 MG/15 ML BOTTLE PO PRN (04:24)
[2018-09-14] MEDS: ALBUTEROL NEBULIZED 2.5 MG/3 ML INHALATION SCH ×2 (07:06→11:50)
[2018-09-14 07:49] VITALS: BP 153/63; PULSE 65
[2018-09-14 07:50] LABS: Basophils # (A) 0.1 k/uL (0-0.2); Basophils % (A) 0 %; Eosinophils % (A) 0 %; HCT 45.3 % (39.0-53.0); HGB 14.7 gm/dL (13.0-17.5); Lymphocytes % (A) 8 %; MCH 28.1 pg (25.0-35.0); MCHC 32.5 g/dL (31.0-37.0); MCV 86.5 fL (80.0-100.0); Mean Platelet Volume 7.6; Monocytes % (A) 4 %; Neutrophils % (A) 87 %; Platelet Count 237 k/uL (150-450); RBC 5.24 m/uL (4.30-5.90); RDW 14.2 % (11.5-15.5); WBC 25.3 k/uL (3.8-10.6)
[2018-09-14] MEDS ORDERED: 1: MVI, ADULT NO.4 WITH VIT K 10 ML, THIAMINE 100 MG, FOLIC ACID 1 MG, POTASSIUM CHLORID IV SCH ×6 (08:00)
[2018-09-14] MEDS ORDERED: 0.9% NACL WITH KCL 20 MEQ/L 1,000 ML IV SCH (08:00)
[2018-09-14 08:14] LABS: Anion Gap 11 mmol/L; Blood Urea Nitrogen 15 mg/dL (9-20); Calcium 9.1 mg/dL (8.4-10.2); Carbon Dioxide 23 mmol/L (22-30); Chloride 108 mmol/L (98-107); Magnesium 2.1 mg/dL (1.6-2.3); Phosphorus 2.9 mg/dL (2.5-4.5); Potassium 4.6 mmol/L (3.5-5.1); Sodium 142 mmol/L (137-145)
[2018-09-14] MEDS ORDERED: ENOXAPARIN 40 MG/0.4 ML SYRINGE SQ SCH (09:00)
[2018-09-14] MEDS ORDERED: SERTRALINE 50 MG TAB PO SCH (09:00)
[2018-09-14] MEDS ORDERED: METOPROLOL SUCCINATE (ER) 50 MG TAB.ER.24H PO SCH (09:00)
[2018-09-14] MEDS ORDERED: PANTOPRAZOLE 40 MG/10 ML VIAL IV SCH (09:00)
[2018-09-14] MEDS ORDERED: amLODIPine 10 MG TAB PO SCH (09:00)
[2018-09-14] MEDS ORDERED: oxyCODONE-APAP 7.5-325MG 1 EACH TAB PO PRN (12:26)
--- NOTE | 2018-09-14 12:33 | P.PN ---
Subjective Progress Note Date: 09/14/18 57-year-old male sitting up in a chair. Just returned from having a esophagram Patient states he takes Percocets at home for chronic pain is anxious to get back on stop the IV pain medication abdomen obese soft nondistended surgical dressing site dry Patient is postop 13 of September laparoscopic sleeve gastrectomy for morbid obesity BMI 49 Objective - Vital Signs Vital signs: Vital Signs Temp 97.8 F 09/14/18 07:47 Pulse 65 09/14/18 07:47 Resp 16 09/14/18 07:47 BP 153/63 09/14/18 07:47 Pulse Ox 95 09/14/18 11:09 Intake & Output 09/13/18 09/14/18 09/14/18 18:59 06:59 18:59 Intake Total 1850 2050 Output Total 25 500 Balance 1825 1550 Weight 152.407 kg 152.407 kg Intake: IV 1850 Intake, IV Titration 2000 Amount 0.9% NaCl with KCl 20 Meq 1200 /l 1,000 ml @ 100 mls/hr IV .Q10H [facility] Rx#: [id number] 0.9% NaCl with KCl 20 Meq 600 /l 1,000 ml @ 150 mls/hr IV .Q6H40M [facility] Rx#: [id number] Ampicillin-Sulbactam 3 gm 200 In Sodium Chloride 0.9% 100 ml @ 200 mls/hr IVPB Q6HR [facility] Rx#:[id number] Oral 50 Output: Urine 500 Estimated Blood Loss 25 Other: Voiding Method Urinal # Voids 4 - Exam physical exam 57-year-old male sitting up in a chair appears in no acute distress Lungs clear currently on room air no shortness of breath Heart S1-S2 audible regular Abdomen obese soft not distended surgical dressing site dry urinating no difficulty reports tolerating a diet reactive clear Extremities left [id number] amputation right no edema - Labs CBC & Chem 7: 09/14/18 06:31 09/14/18 06:31 Labs: Abnormal Lab Results - Last 24 Hours (Table) 09/14/18 09/14/18 Range/Units 06:31 06:31 WBC 25.3 H (3.8-10.6) k/uL Neutrophils # 22.0 H (1.3-7.7) k/uL Chloride 108 H (98-107) mmol/L Assessment and Plan Assessment: Impression Morbid obesity BMI 49 Removal of lap band secondary to dysphagia Postop September 13 laparoscopic lysis of adhesions, removal LAP-BAND, sleeve gastrectomy Chronic pain on Percocet with a pain prescription per pain management physician Plan Continue postop bariatric care . IV pain medication Resume home dose of Percocet we'll hold discharge for now and monitor pain management while on Percocet DVT and GI prophylaxis Follow-up on pending esophagram The above impression and plan of care have been discussed and directed by signing physician. Jammie Maria nurse practitioner acting as scribe for signing physician.
--- NOTE | 2018-09-14 14:12 | P.DS ---
Providers Date of admission: 09/13/18 06:14 Expected date of discharge: 09/14/18 Attending physician: Nabor Preston Consults: 09/13/18 10:10 Consult Physician Routine Consulting Provider: Kelly Gleason Consult Reason/Comments: Medical management Do you want consulting provider notified?: Yes Primary care physician: [facility] Course: 57-year-old male presented to undergo removal of a lap band and conversion to a sleeve gastrectomy. Patient has morbid obesity BMI 48. Patient had a previous history of a lap band surgery. Developed dysphagia band was tight decision was made to remove the LAP-BAND secondary to dysphagia patient elected to undergo laparoscopic sleeve gastrectomy on September 13 postop 13 of September laparoscopic sleeve gastrectomy for morbid obesity BMI 49 Impression Morbid obesity BMI 49 Removal of lap band secondary to dysphagia Postop September 13 laparoscopic lysis of adhesions, removal LAP-BAND, sleeve gastrectomy Chronic pain on Percocet with a pain prescription per pain management physician The above impression and plan of care have been discussed and directed by signing physician. Jammie Maria nurse practitioner acting as scribe for signing physician. Plan - Discharge Summary Discharge Rx Participant: No New Discharge Prescriptions: New Bisacodyl [Dulcolax] 5 mg PO DAILY PRN #10 tablet.dr PRN Reason: Constipation Ondansetron Odt [Zofran Odt] 4 mg PO Q8HR PRN #9 tab PRN Reason: Nausea Simethicone 40 mg/0.6 ml Drops [Mylicon Drops] 40 mg PO PCHS PRN #30 ml PRN Reason: Gas No Action Hydrochlorothiazide [Hydrodiuril] 25 mg PO DAILY oxyCODONE-APAP 7.5-325MG [Percocet 7.5-325 mg] 1 tab PO TID PRN PRN Reason: Pain Sertraline [Zoloft] 50 mg PO DAILY amLODIPine [Norvasc] 10 mg PO DAILY Metoprolol Succinate [Toprol Xl] 50 mg PO DAILY Discharge Medication List Hydrochlorothiazide [Hydrodiuril] 25 mg PO DAILY 02/22/18 [History] Metoprolol Succinate [Toprol Xl] 50 mg PO DAILY 08/16/18 [History] Sertraline [Zoloft] 50 mg PO DAILY 08/16/18 [History] amLODIPine [Norvasc] 10 mg PO DAILY 08/16/18 [History] oxyCODONE-APAP 7.5-325MG [Percocet 7.5-325 mg] 1 tab PO TID PRN 08/16/18 [ History] Bisacodyl [Dulcolax] 5 mg PO DAILY PRN #10 tablet.dr 09/14/18 [Rx] Ondansetron Odt [Zofran Odt] 4 mg PO Q8HR PRN #9 tab 09/14/18 [Rx] Simethicone 40 mg/0.6 ml Drops [Mylicon Drops] 40 mg PO PCHS PRN #30 ml [Rx] Follow up Appointment(s)/Referral(s): Nabor Preston MD [STAFF PHYSICIAN] - 1 Week Activity/Diet/Wound Care/Special Instructions: No tub bath for six weeks. Shower daily. No lifting over 10 pounds for the next 4 weeks. Bariatric clear diet. May use ice packs to surgical site. No driving while taking narcotic for pain. Discharge Disposition: HOME SELF-CARE
--- NOTE | 2018-09-14 14:44 | XR ---
EXAMINATION TYPE: XR chest 1V DATE OF EXAM: 09/14/2018 COMPARISON: NONE HISTORY: Occasional cough TECHNIQUE: Single frontal view of the chest is obtained. FINDINGS: Exam is somewhat suboptimal secondary to patient body habitus. There is no focal air space opacity, pleural effusion, or pneumothorax seen. The cardiac silhouette size is mildly enlarged. The osseous structures are intact. IMPRESSION: No acute cardiopulmonary process.
--- NOTE | 2018-09-14 15:16 | FL ---
EXAMINATION TYPE: FL UGI DATE OF EXAM: 09/14/2018 LIMITED UGI: CLINICAL HISTORY: Gastric sleeve performed on 09/13/2018 with that been removed. TECHNIQUE: Limited esophagram is performed utilizing 50 mL oz of Isovue 370. A total of 1.13 minutes of fluoroscopic time was utilized during procedure. 14 fluoroscopic images were saved. COMPARISON: None. FINDINGS: Exam is slightly dominant secondary to patient body habitus and inability to stand for the procedure. The patient swallowed contrast without difficulty or delay. Esophageal peristalsis and mo tility are within normal limits. There is only minimally delayed flow of contrast along the diaphrag matic hiatus into proximal stomach and subsequent flow into gastric sleeve. There is good flow from d istal sleeve into pylorus and duodenal sweep. Patient remains asymptomatic. There is no evidence of c ontrast extravasation to suggest leak. IMPRESSION: No evidence of leak or significant obstruction status post recent gastric sleeve surgery.
--- NOTE | 2018-09-15 12:59 | CDI ---
Last Revision, October 2017 Documentation Clarification Form Date: 09/15/2018 12:48:15 PM From: Viviana Pope Phone: If you have a question about this query, please contact Mar[employer] at [phone] between 8am and 5pm. Admit Date: 09/13/2018 6:14:00 AM Patient Name: Derik Carias Visit Number: [id number] Discharge Date:09/14/18 ATTENTION: The Clinical Documentation Specialists (CDI) and [facility] Coding Staff appreciate your assistance in clarifying documentation. Please respond to the clarification below the line at the bottom and electronically sign. The CDI & [facility] Coding staff will review the response and follow-up if needed. Please note: Queries are made part of the Legal Health Record. If you have any questions, please contact the author of this message via ITS. Nabor Jimenez MD Documentation in the Operative Report included: Approximately 15 minutes of operative time used to lyse adhesions. History/Risk factors: Previous lap band causing dysphagia Pre-Operative Diagnosis: Dysphagai morbid obesity BMI 49 Postoperative Diagnosis:same Clinical Indicators: adhesion to the lap band Treatment: Lysis of adhesions In order to capture the severity of condition, please specify the following: Extensive lysis of adhesions Non-extensive lysis of adhesions Extensive lysis of adhesions MTDD
--- NOTE | 2018-09-23 15:43 | P.PN ---
Subjective Progress Note Date: 09/14/18 Progress note being dictated for Dr. Conway. Interval history: This is a 57-year-old pleasant gentleman morbidly obese left knee amputation came in for elective sleeve gastrectomy lap band removal and the additional lysis. Patient successfully underwent surgery denied any pain presently except for some soreness in the surgical site areas. Patient is presently on Unasyn. Does have history of hypertension blood pressure is bit elevated. Denied any fever chills dysuria lightheadedness cough. Does have some nausea Review of Systems REVIEW OF SYSTEMS: CONSTITUTIONAL: No fever, no malaise, no fatigue. HEENT: No recent visual problems or hearing problems. Denied any sore throat. CARDIOVASCULAR: No chest pain, orthopnea, PND, no palpitations, no syncope. PULMONARY: No shortness of breath, no cough, no hemoptysis. GASTROINTESTINAL: No diarrhea, no vomiting, no abdominal pain. Normoactive bowel sounds. NEUROLOGICAL: No headaches, no weakness, no numbness. HEMATOLOGICAL: Denies any bleeding or petechiae. GENITOURINARY: Denies any burning micturition, frequency, or urgency. MUSCULOSKELETAL/RHEUMATOLOGICAL: Denies any joint pain, swelling, or any muscle pain. ENDOCRINE: Denies any polyuria or polydipsia. The rest of the 14-point review of systems is negative. 09/14/18 sitting up in chair.Upper GI pending. Occasional nonproductive cough, chest x-ray nonacute. Afebrile. WBC 25. Objective - Vital Signs Vital signs: Vital Signs Temp 97.8 F 09/14/18 07:47 Pulse 65 09/14/18 07:47 Resp 16 09/14/18 07:47 BP 153/63 09/14/18 07:47 Pulse Ox 95 09/14/18 11:09 Intake & Output 09/13/18 09/14/18 09/14/18 18:59 06:59 18:59 Intake Total 1850 2050 Output Total 25 500 150 Balance 1825 1550 -150 Weight 152.407 kg 152.407 kg Intake: IV 1850 Intake, IV Titration 2000 Amount 0.9% NaCl with KCl 20 Meq 1200 /l 1,000 ml @ 100 mls/hr IV .Q10H [facility] Rx#: [id number] 0.9% NaCl with KCl 20 Meq 600 /l 1,000 ml @ 150 mls/hr IV .Q6H40M [facility] Rx#: [id number] Ampicillin-Sulbactam 3 gm 200 In Sodium Chloride 0.9% 100 ml @ 200 mls/hr IVPB Q6HR [facility] Rx#:[id number] Oral 50 Output: Urine 500 150 Estimated Blood Loss 25 Other: Voiding Method Urinal # Voids 4 - Exam GENERAL: The patient is alert and oriented x3, no acute distress. HEENT: Pupils are round and equally reacting to light. EOMI. No scleral icterus. No conjunctival pallor. Normocephalic, atraumatic. CARDIOVASCULAR: S1 and S2 present. No murmurs, rubs, or gallops. PULMONARY: Chest is clear to auscultation, no wheezing or crackles. ABDOMEN: Soft, nontender, nondistended, normoactive bowel sounds. Dressing clean dry and intact MUSCULOSKELETAL: No joint swelling or deformity. EXTREMITIES: No cyanosis, clubbing, or pedal edema. Left above knee amputation NEUROLOGICAL: Gross neurological examination did not reveal any focal deficits. SKIN: No rashes. - Labs CBC & Chem 7: 09/14/18 06:31 09/14/18 06:31 Labs: Abnormal Lab Results - Last 24 Hours (Table) 09/14/18 09/14/18 Range/Units 06:31 06:31 WBC 25.3 H (3.8-10.6) k/uL Neutrophils # 22.0 H (1.3-7.7) k/uL Chloride 108 H (98-107) mmol/L Assessment and Plan Assessment: -Laparoscopic sleeve gastrectomy -Hypertension -Osteoarthritis -Left above knee amputation -Morbid obesity, BMI 49 for which patient underwent laparoscopic sleeve gastrectomy -Removal of lap band secondary to dysphagia -Anxiety disorder -Chronic pain syndrome -Leukocytosis, most likely reactive. Plan: Continue current medication regime ,monitoring and symptomatic treatment. PT/OT. Discharge planning in progress for today as per surgery. Aggressive pulmonary toileting. Follow-up with PCP in 1 week. The impression and plan of care has been dictated as directed. : I performed a history and examination of this patient, discussed the same with the dictator. I agree with the dictator's note ,documented as a scribe. Any additional findings or plans will be noted.
== END 2018-09-14 15:00 | disposition home or self-care (01) | DRG 327 ==
LOC: 2ORMAIN 06:14 → 4SSUR 16:49
PROVIDERS: ADMIT Surgery; ATTEND Surgery
PROC: 0DB64Z3 Excision of Stomach, Percutaneous Endoscopic Approach, Vertical (ICD-10-PCS; principal; 2018-09-13 08:00)
PROC: 0DN84ZZ Release Small Intestine, Percutaneous Endoscopic Approach (ICD-10-PCS; 2018-09-13 08:00)
PROC: 0DP64CZ Removal of Extraluminal Device from Stomach, Percutaneous Endoscopic Approach (ICD-10-PCS; 2018-09-13 08:00)
DX: K95.09 Other complications of gastric band procedure (principal); Z68.42 Body mass index [BMI] 45.0-49.9, adult; R13.19 Other dysphagia; E66.01 Morbid (severe) obesity due to excess calories; I10 Essential (primary) hypertension; K21.9 Gastro-esophageal reflux disease without esophagitis; Z79.891 Long term (current) use of opiate analgesic; Z87.891 Personal history of nicotine dependence; Z89.612 Acquired absence of left leg above knee; K66.0 Peritoneal adhesions (postprocedural) (postinfection); M19.90 Unspecified osteoarthritis, unspecified site; F41.9 Anxiety disorder, unspecified; Z79.899 Other long term (current) drug therapy; G89.4 Chronic pain syndrome; Z91.09 Other allergy status, other than to drugs and biological substances
CPT/HCPCS: 71045; 74240; 80051; 82310; 82565; 83735; 84100; 84520; 85025; 88307; 94760; 94762

== ENCOUNTER → 2018-09-20 | Outpatient (CLI) | payer MEDICARE ==
[2018-09-20 14:32] VITALS: BMI 48.4
[2018-09-20 15:16] VITALS: BP 156/68; PULSE 65; RESP 16; TEMP 97.6
--- NOTE | 2018-09-20 16:36 | P.HPBAR ---
Bariatric H&P - History & Physicial H&P Date: 09/20/18 History & Physicial: Visit/CC: POST SLEEVE Patient initial contact: Initial weight: 142.428 kg Initial weight in pounds: 314.00 Height: 5 ft 9 in Initial BMI: 46.3 Last weight: Current weight: 148.778 kg Current weight in pounds: 328.00 Current BMI: 48.4 [place] body weight (based on NIH guidelines): 72.575 kg Excess body weight loss: The patient is a 57 year-old M who presents for Bariatric Assessment. The patient presents today for sleeve gastrectomy follow-up he is one week post sleeve gastrectomy. He is doing quite well. He's lost proximal 10 pounds. He denies a significant abdominal pain nausea or GERD. Past Medical History Past Medical History: GERD/Reflux, Hypertension History of Any Multi-Drug Resistant Organisms: None Reported Past Surgical History: Appendectomy, Bariatric Surgery, Cholecystectomy, Orthopedic Surgery, Tonsillectomy Additional Past Surgical History / Comment(s): left AKA, lap band- 2003,Right- Left fem-pop bypass surgery, Left above knee amputation, Past Anesthesia/Blood Transfusion Reactions: No Reported Reaction Additional Past Anesthesia/Blood Transfusion Reaction / Comm: No transfusion to date Smoking Status: Former smoker Surgical - Exam Vital Signs Temp Pulse Resp BP 97.6 F 65 16 156/68 09/20/18 15:14 09/20/18 15:14 09/20/18 15:14 09/20/18 15:14 - General well developed, no distress - Eyes PERRL - ENT normal pinna - Neck no masses - Respiratory normal expansion - Cardiovascular Rhythm: regular - Abdomen Incision site clean dry tach Abdomen: soft, non tender Bariatric Assessment & Plan Plan: Status post sleeve gastrectomy. Patient is doing quite well. He'll follow-up in 2 weeks. Bariatric Checklist Checklist: Plan: Checklist: EGD: 1. Hiatal hernia: 2. H. Pylori: HgbA1c: Vitamin D: Smoking: Former smoker Primary care physician referral: Dr. Kadeem Khanna ([place]) Psychiatry clearance: Cardiology clearance: Sleep study: Diet journal: VTE risk score: VTE risk level: Rehab needs at discharge:
== END | disposition home or self-care (01) ==
LOC: BARWHC3 13:41
PROVIDERS: ATTEND Surgery
DX: Z48.815 Encounter for surgical aftercare following surgery on the digestive system (principal); E66.01 Morbid (severe) obesity due to excess calories; Z68.42 Body mass index [BMI] 45.0-49.9, adult; Z87.891 Personal history of nicotine dependence; Z98.84 Bariatric surgery status
CPT/HCPCS: 97802; G0463; 99211

== ENCOUNTER → 2019-01-10 | Outpatient (CLI) | payer MEDICARE ==
[2019-01-10 14:01] VITALS: BP 156/63; PULSE 66; RESP 16; TEMP 98.6; BMI 43.1
--- NOTE | 2019-01-11 10:47 | P.HPBAR ---
Bariatric H&P - History & Physicial H&P Date: 01/10/19 History & Physicial: Visit/CC: sleeve follow-up Patient initial contact: Initial weight: 142.428 kg Initial weight in pounds: 314.00 Height: 5 ft 9 in Initial BMI: 46.3 Last weight: Current weight: 132.449 kg Current weight in pounds: 292.00 Current BMI: 43.1 [place] body weight (based on NIH guidelines): 72.575 kg Excess body weight loss: 14.2% The patient is a 58 year-old M who presents for Bariatric Assessment. Patient presents today for sleeve gastrectomy follow-up. He's not been seen several months. He's lost approximately 25 pounds. He's had some mild GERD. Past Medical History Past Medical History: GERD/Reflux, Hypertension History of Any Multi-Drug Resistant Organisms: None Reported Past Surgical History: Appendectomy, Bariatric Surgery, Cholecystectomy, Orthopedic Surgery, Tonsillectomy Additional Past Surgical History / Comment(s): left AKA, lap band- 2004,Right- Left fem-pop bypass surgery, Left above knee amputation, Past Anesthesia/Blood Transfusion Reactions: No Reported Reaction Additional Past Anesthesia/Blood Transfusion Reaction / Comm: No transfusion to date Smoking Status: Former smoker Surgical - Exam Vital Signs Temp Pulse Resp BP 98.6 F 66 16 156/63 01/10/19 13:59 01/10/19 13:59 01/10/19 13:59 01/10/19 13:59 - General well developed, well nourished, no distress - Eyes PERRL - ENT normal pinna - Abdomen Abdomen: soft, non tender Bariatric Assessment & Plan Plan: Status post sleeve gastrectomy. Patient will be treated with omeprazole 40 mg by mouth daily. He'll follow-up in one month. Bariatric Checklist Checklist: Plan: Checklist: EGD: 1. Hiatal hernia: 2. H. Pylori: HgbA1c: Vitamin D: Smoking: Former smoker Primary care physician referral: Dr. Kadeem Khanna ([place]) Psychiatry clearance: Cardiology clearance: Sleep study: Diet journal: VTE risk score: VTE risk level: Rehab needs at discharge:
== END | disposition home or self-care (01) ==
LOC: BARWHC3 12:50
PROVIDERS: ATTEND Surgery
DX: Z48.815 Encounter for surgical aftercare following surgery on the digestive system (principal); E66.01 Morbid (severe) obesity due to excess calories; Z87.891 Personal history of nicotine dependence; Z90.49 Acquired absence of other specified parts of digestive tract; Z90.89 Acquired absence of other organs; Z68.41 Body mass index [BMI] 40.0-44.9, adult; Z98.84 Bariatric surgery status; Z98.890 Other specified postprocedural states
CPT/HCPCS: 97803; G0463; 99211

== ENCOUNTER → 2019-02-07 | Outpatient (CLI) | payer MEDICARE ==
[2019-02-07 13:11] VITALS: BP 158/74; PULSE 64; RESP 18; TEMP 97.9; BMI 43.7
== END | disposition home or self-care (01) ==
LOC: BARWHC3 12:57
PROVIDERS: ATTEND Surgery
DX: E66.01 Morbid (severe) obesity due to excess calories (principal); Z68.41 Body mass index [BMI] 40.0-44.9, adult
CPT/HCPCS: 97803; G0463; 99211

== ENCOUNTER → 2019-04-07 | Outpatient (CLI) | payer MEDICARE ==
--- NOTE | 2019-04-07 22:51 | MR ---
EXAMINATION TYPE: MR brain wo/w con DATE OF EXAM: 04/07/2019 COMPARISON: NONE HISTORY: Headaches TECHNIQUE: Multiplanar, multisequence images of the brain and brainstem is performed without and with IV contras t, utilizing 13 mL intravenous Gadavist . FINDINGS: Diffusion weighted images demonstrate no evidence of a recent infarct or other diffusion ab normality. There is no worrisome extra-axial fluid collection . The ventricular system and Cisterna l spaces are normal in size and appearance. The brain volume is age appropriate. There are scattered foci of T2 hyperintensity seen throughout the white matter bilaterally. Approximately 60-70 scattere d small lesions are seen. Lesions are nonspecific in appearance and distribution. Midline structures demonstrate normal morphology. The craniocervical junction appears within normal limits. Post contrast images demonstrate no abnormal enhancement. Dominant left vertebral artery is incidentally noted. The dural venous sinuses appear patent. Ficn-pv-bqylmido mucosal thickening invol ving ethmoid sinuses bilaterally is present. Nasal septum is slightly deviated to right of midline. T he globes are intact. IMPRESSION: Moderate to severe nonspecific white matter changes may be on the basis of chronic small vessel ischemic change and/or altered vascular flow related to product of migraine headaches among th e possible etiologies.
== END | disposition home or self-care (01) ==
LOC: RADMRIMAIN 16:18
PROVIDERS: ATTEND Psychiatry & Neurology Neurology
DX: R90.89 Other abnormal findings on diagnostic imaging of central nervous system (principal); R51 Headache
CPT/HCPCS: 70553

== ENCOUNTER → 2019-07-11 | Outpatient (CLI) | payer MEDICARE ==
--- NOTE | 2019-07-12 08:08 | US ---
EXAMINATION TYPE: US carotid duplex BILAT DATE OF EXAM: 07/11/2019 COMPARISON: MRI CLINICAL HISTORY: H53.121 Transient visual loss of right eye. Pt states headaches, pressure behind ey es EXAM MEASUREMENTS: RIGHT: Peak Systolic Velocity (PSV) cm/sec ----- Right CCA: 32.5 ----- Right ICA: 390.7 ----- Right ECA: 104.3 ICA/CCA ratio: 12.0 RIGHT: End Diastole cm/sec ----- Right CCA: 0.0 ----- Right ICA: 99.4 ----- Right ECA: 11.1 LEFT: Peak Systolic Velocity (PSV) cm/sec ----- Left CCA: 57.2 ----- Left ICA: 84.2 ----- Left ECA: 76.2 ICA/CCA ratio: 1.5 LEFT: End Diastole cm/sec ----- Left CCA: 16.2 ----- Left ICA: 33.6 ----- Left ECA: 0.0 VERTEBRALS (direction of flow): Right Vertebral: Antegrade Left Vertebral: Antegrade Rhythm: Normal Soft plaque causing significant stenosis within right ICA/ Abnormal waveforms within right CCA/ Abnor mal ratio on right side Attempted to call results to Dr's office, however office was closed IMPRESSION: High-grade stenosis, near occlusion of the right internal carotid artery. CTA neck is recommended for more accurate assessment of degree of stenosis. No sonographic evidence of hemodynamically significa nt stenosis within the visualized left carotid arterial system. Vascular surgery consultation could a lso be considered. Criteria for Assigning % of Stenosis / Diameter reduction (Estimation based on the indirect measurements of the internal carotid artery velocities (ICA PSV). 1. Normal (no stenosis)=ICA PSV < 125 cm/s: ratio < 2.0: ICA EDV<40 cm/s. 2. Less than 50% stenosis=ICA PSV < 125 cm/s: ratio < 2.0: ICA EDV<40 cm/s. 3. 50 to 69% stenosis=ICA PSV of 125 to 230 cm/s: ration 2.0 ? 4.0: ICA EDV 40-100 cm/s. 4. Greater than 70% stenosis to near occlusion= ICA PSV > 230 cm/s: ratio > 4.0: ICA EDV > 100 cm/s. 5. Near occlusion= ICA PSV velocities may be low or undetectable: variable ratio and ICA EDV. 6. Total occlusion=unable to detect flow.
--- NOTE | 2019-07-12 09:38 | ECHOF ---
Referral Reason:H53.121 Transient visual loss of right eye MEASUREMENTS -------- HEIGHT: 175.3 cm WEIGHT: 131.1 kg BP: RVIDd: 3.0 cm (< 3.3) IVSd: 1.5 cm (0.6 - 1.1) LVIDd: 3.5 cm (3.9 - 5.3) LVPWd: 1.6 cm (0.6 - 1.1) IVSs: 2.1 cm LVIDs: 2.4 cm LVPWs: 2.1 cm Ao Diam: 3.4 cm (2.0 - 3.7) AV Cusp: 2.1 cm (1.5 - 2.6) LA Diam: 3.7 cm (2.7 - 3.8) MV EXCURSION: 16.052 mm (> 18.000) MV EF SLOPE: 46 mm/s (70 - 150) EPSS: 0.3 cm MV E Mateo: 0.54 m/s MV DecT: 361 ms MV A Mateo: 0.74 m/s MV E/A Ratio: 0.73 RAP: 5.00 mmHg RVSP: 10.82 mmHg FINDINGS -------- Sinus rhythm. This was a technically difficult study with suboptimal views. The left ventricular size is normal. There is moderate concentric left ventricular hypertrophy. O verall left ventricular systolic function is normal with, an EF between 55 - 60 %. The right ventricle is normal in size. The left atrial size is normal. The right atrial size is normal. xx ml of Lumason was utilized for enhancement of images. The aortic valve is trileaflet and appears structurally normal. There is trace mitral regurgitation. Trace tricuspid regurgitation present. Right ventricular systolic pressure is normal at < 35 mmHg. There is no pulmonic regurgitation present. The aortic root size is normal. IVC Not well visulized. There is no pericardial effusion. CONCLUSIONS -------- 1. Sinus rhythm. 2. This was a technically difficult study with suboptimal views. 3. The left ventricular size is normal. 4. There is moderate concentric left ventricular hypertrophy. 5. Overall left ventricular systolic function is normal with, an EF between 55 - 60 %. 6. The right ventricle is normal in size. 7. The left atrial size is normal. 8. The right atrial size is normal. 9. xx ml of Lumason was utilized for enhancement of images. 10. The aortic valve is trileaflet and appears structurally normal. 11. There is trace mitral regurgitation. 12. Trace tricuspid regurgitation present. 13. Right ventricular systolic pressure is normal at < 35 mmHg. 14. There is no pulmonic regurgitation present. 15. The aortic root size is normal. 16. IVC Not well visulized. 17. There is no pericardial effusion. COMPLEX DIRECTOR: Ivy Demarco RDCS
== END | disposition home or self-care (01) ==
LOC: RADECHMAIN 16:24
PROVIDERS: ATTEND Internal Medicine
DX: I51.7 Cardiomegaly (principal); I65.21 Occlusion and stenosis of right carotid artery
CPT/HCPCS: 93880; C8929; Q9950; 93306

== ENCOUNTER 2019-08-01 09:17 | Emergency (ER) | payer MEDICARE ==
[2019-08-01 09:23] VITALS: TEMP 98.3
--- NOTE | 2019-08-01 10:09 | ED ---
General Adult HPI - General Chief complaint: Upper Respiratory Infection Stated complaint: Head cold, ear ache Time Seen by Provider: 08/01/19 09:34 Source: patient, RN notes reviewed Mode of arrival: wheelchair Limitations: physical limitation - History of Present Illness Initial comments: Patient is a pleasant 58-year-old male presenting to the emergency department with sinus congestion and left earache. Symptoms have been occurring between 1 and 2 weeks. Patient has tried [id number] medications without improvement of symptoms. This is not a chronic problem for him. No dyspnea or cough. Patient states his hearing from his left ear is slightly muffled. Patient did try some sweet oil in his left ear. - Related Data Home Medications Medication Instructions Recorded Confirmed amLODIPine [Norvasc] 10 mg PO DAILY 08/16/18 08/01/19 oxyCODONE-APAP 7.5-325MG [Percocet 1 tab PO TID PRN 08/16/18 08/01/19 7.5-325 mg] Butalb/APAP/Caff 50-325-40Mg 1 tab PO Q4H PRN 08/01/19 08/01/19 [Fioricet 50-325-40] Metoprolol Tartrate [Lopressor] 25 mg PO BID 08/01/19 08/01/19 Multivitamins, Thera [Multivitamin 1 tab PO DAILY 08/01/19 08/01/19 (formulary)] Previous Rx's Medication Instructions Recorded Amoxic-Pot Clav 875-125Mg 1 tab PO Q12HR #20 tablet 08/01/19 [Augmentin 875-125] Ciprofloxacin HCl/Dexameth 4 drops LEFT EAR BID #7.5 ml 08/01/19 [Ciprodex Otic Suspension] Allergies Allergy/AdvReac Type Severity Reaction Status Date / Time steri strips AdvReac Rash/Hives Uncoded 08/01/19 09:42 Review of Systems ROS Statement: Those systems with pertinent positive or pertinent negative responses have been documented in the HPI. ROS Other: All systems not noted in ROS Statement are negative. Constitutional: Denies: fever Eyes: Denies: eye pain ENT: Reports: ear pain, congestion. Denies: throat pain Respiratory: Denies: cough, dyspnea Cardiovascular: Denies: chest pain, palpitations Endocrine: Denies: fatigue Gastrointestinal: Denies: abdominal pain Genitourinary: Denies: dysuria Musculoskeletal: Denies: back pain Skin: Denies: rash Neurological: Denies: weakness Past Medical History Past Medical History: GERD/Reflux, Hypertension Additional Past Medical History / Comment(s): migraines History of Any Multi-Drug Resistant Organisms: None Reported Past Surgical History: Appendectomy, Bariatric Surgery, Cholecystectomy, Orthopedic Surgery, Tonsillectomy Additional Past Surgical History / Comment(s): left AKA, lap band- 2004,Right- Left fem-pop bypass surgery, Left above knee amputation, Past Anesthesia/Blood Transfusion Reactions: No Reported Reaction Additional Past Anesthesia/Blood Transfusion Reaction / Comment(s): No transfusion to date Past Psychological History: No Psychological Hx Reported Smoking Status: Current every day smoker Past Alcohol Use History: None Reported Past Drug Use History: None Reported General Exam Limitations: physical limitation General appearance: alert, in no apparent distress Head exam: Present: atraumatic Eye exam: Present: normal appearance ENT exam: Present: other (Patient does have tenderness over the frontal ethmoid and maxillary sinuses) Expanded TM/Canal exam: Erythema: Left TM, Bulging: Left TM, Effusion: Left TM, Perforation: Left TM (Can Not rule out small perforation and left), Loss of Landmarks: Left TM, Canal Discharge: Left TM, Canal Tenderness: Left TM Throat exam: normal inspection Neck exam: Present: normal inspection Respiratory exam: Present: normal lung sounds bilaterally Cardiovascular Exam: Present: regular rate, normal rhythm GI/Abdominal exam: Present: soft. Absent: tenderness Extremities exam: Present: other (Left AKA) Neurological exam: Present: alert Psychiatric exam: Present: normal affect, normal mood Skin exam: Present: normal color Course Vital Signs 08/01/19 09:21 Temperature 98.3 F Pulse Rate 88 Respiratory 18 Rate Blood Pressure 153/106 O2 Sat by Pulse 96 Oximetry Medical Decision Making - Medical Decision Making Patient is aware of possible TM perforation and put nothing in his ear other than drops prescribed. Patient is agreeable to follow-up. Disposition Clinical Impression: Sinusitis, Otitis media, acute with perforation of eardrum Disposition: HOME SELF-CARE Condition: Stable Additional Instructions: Please follow-up with primary care physician in the next day or 2 for recheck. Return for fevers, increased pain, drainage or worsening symptoms or other concerns. Prescription has been sent to [facility] on Prescriptions: Amoxic-Pot Clav 875-125Mg [Augmentin 875-125] 1 tab PO Q12HR #20 tablet Ciprofloxacin HCl/Dexameth [Ciprodex Otic Suspension] 4 drops LEFT EAR BID #7.5 ml Is patient prescribed a controlled substance at d/c from ED?: No Referrals: Kadeem Khanna MD [Primary Care Provider] - 1-2 days Dino Reyes MD [STAFF PHYSICIAN] - 1-2 days Time of Disposition: 10:07
[2019-08-01 10:25] VITALS: BP 180/84; PULSE 72; RESP 16
--- NOTE | 2019-08-01 10:26 | ED ---
Disposition Clinical Impression: Sinusitis, Otitis media, acute with perforation of eardrum Disposition: HOME SELF-CARE Condition: Stable Instructions (If sedation given, give patient instructions): Ear Infection (ED) Additional Instructions: Please follow-up with primary care physician in the next day or 2 for recheck. Return for fevers, increased pain, drainage or worsening symptoms or other concerns. Prescription has been sent to [facility] on Prescriptions: Amoxic-Pot Clav 875-125Mg [Augmentin 875-125] 1 tab PO Q12HR #20 tablet Ciprofloxacin HCl/Dexameth [Ciprodex Otic Suspension] 4 drops LEFT EAR BID #7.5 ml Is patient prescribed a controlled substance at d/c from ED?: No Referrals: Dino Reyes MD [STAFF PHYSICIAN] - 1-2 days Kadeem Khanna MD [Primary Care Provider] - 1-2 days
== END 2019-08-01 10:24 | disposition home or self-care (01) ==
LOC: EC 09:17
DX: H66.92 Otitis media, unspecified, left ear (principal); H72.92 Unspecified perforation of tympanic membrane, left ear; J32.8 Other chronic sinusitis; I10 Essential (primary) hypertension; K21.9 Gastro-esophageal reflux disease without esophagitis; F17.200 Nicotine dependence, unspecified, uncomplicated; Z79.899 Other long term (current) drug therapy; Z91.048 Other nonmedicinal substance allergy status; Z98.84 Bariatric surgery status; Z89.612 Acquired absence of left leg above knee
CPT/HCPCS: 99283